=== PATIENT | male | born 1980 | race Caucasian/White ===

== ENCOUNTER 2016-10-18 16:43 | Emergency (ER) | payer OTHER ==
[2016-10-18] MEDS ORDERED: DIPHTH,PERTUSS(ACELL),TET VAC 0.5 ML VIAL IM ONE ×2 (17:41→18:41)
[2016-10-18] MEDS ORDERED: LIDOCAINE HCL/EPINEPHRINE 30 ML VIAL IJ ONE (18:50)
--- NOTE | 2016-10-18 18:56 | ERNOTE ---
Medical Problem HPI - Narrative Date of Service: 10/18/16 - General Chief Complaint: Laceration Time Seen by Provider: 10/18/16 18:46 Source: patient Exam Limitations: no limitations - Immun/Allergies/Home Medications Immunizations: IMMUNIZATION HX Immunizations Up to Date No History of Influenza Vaccine No Hx Pneumococcal Vaccination No Allergies/Adverse Reactions: Allergies No Known Allergies Allergy (Unverified 10/18/16 17:40) Home Medications: HOME MEDICATIONS NK [No Home Medication] 10/18/16 [Last Taken Unknown] - History of Present History Narrative: About 1530 today horse spooked and rolled on him. Laceration right lower quarles. Abrasion, bruise and pain proximal left lower leg. Timing: constant Severity: mild, moderate Modifying Factors - (Improves): Present: rest Modifying Factors - (Worsens): Present: movement Review of Systems - Review of Systems Constitutional: Present: no symptoms reported EYE: Present: no symptoms reported ENT: Present: no symptoms reported Respiratory: Present: no symptoms reported Cardiology: Present: no symptoms reported Gastrointestinal/Abdominal: Present: no symptoms reported Genitourinary: Present: no symptoms reported Musculoskeletal: Present: See HPI Skin: Present: See HPI Neurological: Present: no symptoms reported Endocrine: Present: no symptoms reported Hematologic/Lymphatic: Present: no symptoms reported Psych: Present: no symptoms reported All Other Systems: All systems neg except as marked - Patient's Past Medical History Patient History - Medical: No pertinent hx Patient History - Cardiac/Respiratory: No pertinent hx Patient History - Cancer: No Hx of Cancer Patient History - Other: None - Social History Living Situations: home Psych History: No pertinent hx Smoking Status: Former smoker Have you smoked in the past 12 months: No Do you dip or chew tobacco: No - Immunizations Immunizations Up to Date: No Hx Pneumococcal Vaccination: No History of Influenza Vaccine: No Physical Exam - Physical Exam General Appearance: Present: wd/wn, alert, no apparent distress Eye Exam: Normal inspection: right, PERRL: bilateral, EOMI: bilateral, Other: left - left eye muscles damaged years ago Ears, Nose, Throat: Present: normal ENT inspection, hearing grossly normal Neck: Present: normal inspection Respiratory: Present: no respiratory distress Cardiovascular/Chest: Present: regular rate, rhythm Gastrointestinal/Abdominal: Present: normal bowel sounds, nontender, nondistended, soft, no organomegaly Back Exam: Present: normal inspection Extremity Exam: Present: other - 2 cm superficial lacertion distal right quarles. small abrasion and bruise proximal left lower leg. Neurological Exam: Present: alert, oriented, normal mood/affect, no motor/ sensory deficits Skin Exam: Present: normal color, warm/dry ED Progress - Vital Signs Patient's Vital Signs:: I have reviewed the patient's vital signs. Vital Signs: Vital Signs 10/18/16 10/18/16 17:35 18:47 Pulse Rate 78 76 Respiratory 16 18 Rate Blood Pressure 148/114 125/76 O2 Sat by Pulse 99 98 Oximetry - X-Ray X-Ray #1 X-Ray: tibula/fibula Interpretation: Interp. by me - no fracture - Progress/Reassessment Chief Complaint: Laceration Departure - Departure Clinical Impression: Laceration, Abrasion Contusion Qualifiers: Encounter type: initial encounter Contusion area: lower leg Laterality: left Qualified Code(s): S80.12XA - Contusion of left lower leg, initial encounter Disposition: Home self-care Condition: Good Instructions: Laceration Care, Adult, [id number], Contusion, [id number], Abrasion, [id number], RICE for Routine Care of Injuries, [id number] Additional Instructions: change the dressing twice daily and as needed. stitches out in 2 weeks. cover the stitches with plastic wrap and tape in the shower to keep it dry. bacitracin ointment over the counter twice daily to the abrasion on your left leg till it's healed. Referrals: Doris Lu, [Primary Care Provider] -
--- OUTSIDE RECORDS SUMMARY | 2016-10-18 19:24 | XMS REPORT | Continuity of Care Document ---
:1980 Author Organization [facility] ([facility]) Address [address] [place] [address] Phone [phone] Care Team Providers Name Role Phone Radha Billings Primary Care Provider [phone] Source Comments This disclosure is being made pursuant to the Care Everywhere program, applicable federal and state laws, and may not contain all informaitonavailable regarding this patient.[facility] ([facility]) Active Allergies and Adverse Reactions Not on File Current Medications Not on file Active Problems Not on file Social History Tobacco Use Types Packs/Day Years Used Date Never Assessed Plan of Care Health Maintenance Due Date Last Done Comments Hepatitis B Vaccine (1 of 3 - Primary Series) 1980 Tdap Vaccine 1992 Lipid Disorder Screening 12/04/1999 MMR Vaccine 12/04/1999 Td Vaccine 12/04/1999 Varicella Vaccine (1 of 2 - Adult - No Evidence of 12/04/1999 Immunity) Influenza Vaccine: Seasonal (#1) 03/30/2016 Results from Last 3 Months Not on file
[2016-10-18 22:45] VITALS: BP 126/80
== END 2016-10-18 20:00 | disposition home or self-care (01) ==
LOC: ER 16:43
PROC: 0HQKXZZ Repair Right Lower Leg Skin, External Approach (ICD-10-PCS; principal; 2016-10-18)
DX: S80.12XA Contusion of left lower leg, initial encounter (principal); S81.811A Laceration without foreign body, right lower leg, initial encounter; W55.12XA Struck by horse, initial encounter; Z87.891 Personal history of nicotine dependence; Z23 Encounter for immunization

== ENCOUNTER 2019-04-04 06:55 | Observation (INO) ==
[~2019-04-04 06:55] MED LIST: RINGER'S SOLUTION,LACTATED 1,000 ML IV PRN; ceFAZolin SODIUM 1 GM VIAL IV PRN
--- NOTE | 2019-04-04 07:24 | ANES ---
Anesthesia Pre Procedure Eval Vitals/Labs: Last Vital Signs Temp 36.2 C 04/04/19 07:05 Pulse 90 04/04/19 07:05 Resp 18 04/04/19 07:05 BP 123/79 04/04/19 07:05 Pulse Ox 95 04/04/19 07:05 HOME MEDICATIONS Naproxen [Naprosyn] 500 mg PO BID #60 tab 03/31/19 [Last Taken Unknown] cephalexin 500 mg capsule 500 mg PO QID 04/03/19 [Last Taken 04/03/19] Ibuprofen 800 mg PO BID PRN 04/04/19 [Last Taken 04/02/19] Allergies/Adverse Reactions: Allergies Allergy/AdvReac Type Severity Reaction Status Date / Time No Known Allergies Allergy Verified 04/04/19 07:09 - Planned Procedure Planned Procedure: I&D elbow Medication List Reviewed:: Yes Allergies Verified: Yes Medical History (Updated 04/03/19 @ 14:20 by Lars Stallworth MD) ADHD Onset Date: Unknown Arthritis Onset Date: Unknown Hx of fracture of leg Onset Date: Unknown Lyme disease Onset Date: Unknown Syphilis contact, treated Onset Date: Unknown Surgical History (Updated 04/03/19 @ 12:54 by Kailash Deutsch MA) History of hip surgery Onset Date: Unknown Hx of facial fracture repair Onset Date: Unknown Hx of foot surgery Onset Date: Unknown Family History (Updated 04/03/19 @ 12:53 by Kailash Deutsch MA) Father Alive and well Mother Cancer breast Hypertension - Family Anesthesia History Family History:: no untoward family reactions to anesthesia, no familial bleeding tendencies, no family history of clotting disorders, no family history of premature - Airway/Neck/Teeth Within Normal Limits:: Yes Teeth Condition: intact Mallampatti Score: 4 Thyromental (T-M) distance: > 6 cm Mandibulo Hyoid distance: > 3 cm - Respiratory Respiratory Physical: lungs clear Smoking Status: Former smoker Discussed smoking cessation including day of surgery: No Sleep Apnea currently treated: No Sleep Apnea by current assessment: Yes Discussed Risks/Treatment of HERMELINDO: Yes - Cardiovascular Tolerate Activity: Good Heart Sounds: S1 & S2, Regular - Anesthesia Assessment and Plan ASA Class: PS, II Anesthesia Type Plan: General ET, General LMA
[2019-04-04] MEDS ORDERED: ceFAZolin SODIUM 1 GM VIAL IV PRN (07:54)
[2019-04-04] MEDS ORDERED: BUPIVACAINE HCL/EPINEPHRINE 50 ML VIAL IJ ONE (08:00)
[2019-04-04] MEDS ORDERED: ACETAMINOPHEN 500 MG TABLET PO PRN (08:21)
[2019-04-04] MEDS ORDERED: diphenhydrAMINE HCL 50 MG/ML VIAL IV PRN (08:21)
[2019-04-04] MEDS ORDERED: MAG HYDROX/ALUMINUM HYD/SIMETH 30 ML UDC PO PRN (08:21)
[2019-04-04] MEDS ORDERED: HYDROcodone/ACETAMINOPHEN 1 EACH TABLET PO PRN (08:21)
[2019-04-04] MEDS ORDERED: ONDANSETRON HCL/PF 2 MG/ML VIAL IV PRN (08:21)
[2019-04-04] MEDS ORDERED: MAGNESIUM HYDROXIDE 30 ML UDC PO PRN (08:21)
--- NOTE | 2019-04-04 08:46 | ANES ---
Post Anesthesia Discharge - Transfer of Care Transfer of Care handoff given to nurse: Yes - Discharge from PACU Discharge from PACU when meets criteria: Yes - Discharge to ASU Discharge to ASU-no complications/pt stable: Yes
--- NOTE | 2019-04-04 08:57 | ANES ---
Post Anesthesia Assessment - Vital Signs Vitals: Last Vital Signs Temp 37.4 C 04/04/19 08:55 Pulse 80 04/04/19 08:55 Resp 12 04/04/19 08:55 BP 124/73 04/04/19 08:55 Pulse Ox 95 04/04/19 08:55 Airway Patency: Normal - Mental Status Level Of Consciousness: Awake - Pain Level Pain Score: 4 - N/V Assessment Nausea/Vomiting Presence: None Dehydration:: No
[2019-04-04] MEDS: HYDROcodone/ACETAMINOPHEN 1 EACH TABLET PO PRN ×3 (09:53→22:33)
--- NOTE | 2019-04-04 10:35 | OR ---
Operative Report - Dictated Report Narrative: Date: 04/04/2019 Physician: Lars Stallworth M.D. Comber Tender: Artis Cedillo PA-C Preoperative diagnosis: Right infected olecranon bursa Postoperative diagnosis: Right infected olecranon bursa Procedure: Irrigation and debridement of right olecranon bursa including skin, subcutaneous tissue, and bone 4 x 5 cm Anesthesia: General plus local Complications: None Estimated blood loss: Minimal Tourniquet time: 21 Minutes at 250 mmHg Specimens: None Retained implants: None Drains: 7 [place]guillan round HORACE drain Indications: Gee is a 38 year-old male who was roughhousing with his dog and fell on the right elbow and noted some pain. Overnight he developed redness and swelling and presented to an outside walk-in clinic where he was instructed to come to our emergency department due to concern for infection. Aspiration was performed in our emergency department which grew out staph aureus. He followed up in my clinic in the interim had developed increasing redness and swelling and cellulitis extending all the way up to the volar aspect of the forearm and medial aspect of the upper arm. I counseled him on options and recommended surgical irrigation debridement of his olecranon bursa. The risks, benefits, and alternatives were discussed in clinic. The risks being bleeding, infection, ulnar nerve injury, stiffness, persistent pain, wound complications, and need for additional procedures. Consent was obtained in the clinic. Procedure: After marking the correct extremity in the preoperative holding area, a timeout was performed in the operating room. General anesthetic was performed by the nurse agricultural research engineer without complication. The patient was then placed in the left lateral decubitus position on a beanbag with the operative arm supported by a bone foam ramp. IV antibiotics consisting of 2 g of Ancef were administered prior to the procedure. A well-padded tourniquet was applied to the operative upper arm. The right upper extremity was then prepped and draped in usual sterile fashion. The arm was exsanguinated and the tourniquet was inflated to 250 mmHg. A longitudinal incision was made over the olecranon approximately 5 cm in length. We immediately encountered a large amount of cloudy fluid. This was cultured with a swab. The wound was fully opened and the pocket of infection was approximately 5 x 4 cm with no tracking into the forearm or upper arm. We then proceeded with a thorough mechanical debridement of the wound with a combination of a rongeur and a large curette. Tissue samples were also sent for culture. After a thorough mechanical debridement, the wound was copiously irrigated with 3 L of normal saline. This point we felt we had adequately washed out the wound. A 7 [place]guillan round drain was placed in the wound. The skin was closed with interrupted 4-0 nylon and sterile dressings consisting of Xeroform, 4 x 4, soft roll, and JAMAL wrap were applied. All sponge, needle, blade, and instrument counts were correct prior to closing the wounds. The patient was awoken and transferred to the postanesthesia care unit in stable condition.
[2019-04-04] MEDS: ceFAZolin SODIUM 2 GM in DEXTROSE 5 % IN WATER 50 ML IV SCH ×4 (14:21→22:33)
[2019-04-05] MEDS: ceFAZolin SODIUM 2 GM in DEXTROSE 5 % IN WATER 50 ML IV SCH ×2 (05:50)
[2019-04-05] MEDS: HYDROcodone/ACETAMINOPHEN 1 EACH TABLET PO PRN (06:46)
--- NOTE | 2019-04-05 11:54 | DS ---
(1) Infection of right olecranon bursa Problem: Acute Description of Stay: 38-year-old male admitted for 23-hour observation stay for right elbow olecranon bursitis infection. Patient was not admitted status post open irrigation and debridement of his right olecranon bursa. Cultures were taken of this, cultures that were taken in the ER a few days prior revealed staph aureus bacteria. It is sensitive to his treatment with p.o. antibiotics. However patient had significant cellulitic type involvement that appeared to be worsening while taking p.o. antibiotics this is why surgical intervention was warranted. Patient has had an uncomplicated stay. Drain has been putting out less than 10 cc per shift. Pain is well controlled, he is return to p.o. diet. Dressings were changed prior to his discharge without complication. Patient will follow- up in 1 week in orthopedic outpatient clinic. Patient will be given a 10-day course of Keflex p.o. Patient can call orthopedic outpatient clinic with any acute questions or concerns. Patient can leave dressings in place until follow- up. Dressings need to be maintained clean and dry. Procedures Performed: see notes below List Procedures: Irrigation debridement of right olecranon bursitis infection Results and Findings: Pending Mircobiology Results 04/04/19 08:05 Other - Right Surgical Culture - Preliminary Staphylococcus Species 04/04/19 08:05 Elbow - Right Surgical Culture - Preliminary Staphylococcus Species Discharge Location: Home Disposition: Home self-care Condition: Good Discharge Activity: Activity as tolerated, Other - Contain soft dressings in place until follow-up Discharge Diet: General/regular food Referrals: Doris Lu, [Primary Care Provider] - Problem Oriented Discharge Instructions to Patient/Family: Elbow Bursitis, Ledf-ob-Ospi Print Language (Greenlandic or Afghan Available): Greenlandic Prescriptions (Any new or edited meds): Cephalexin 500 mg PO QID 10 Days #40 cap HYDROcodone/ACETAMINOPHEN [[place] 5-325] 1 - 2 ea PO Q6H PRN #40 tab PRN Reason: Severe Pain (Pain Scale 7-10) Complete Home Medications List: Complete Home Medication List: Ibuprofen 800 mg PO BID PRN 04/04/19 Cephalexin 500 mg PO QID 10 Days #40 cap 04/05/19 HYDROcodone/ACETAMINOPHEN [[place] 5-325] 1 - 2 ea PO Q6H PRN #40 tab 04/05/19
[2019-04-05 12:29] VITALS: BP 118/74
== END 2019-04-05 12:20 | disposition home or self-care (01) ==
LOC: MS 06:55 → SUR 06:55
PROVIDERS: ADMIT Orthopaedic Surgery; ATTEND Orthopaedic Surgery
DX: M71.121 Other infective bursitis, right elbow
CPT/HCPCS: 87070; 87077; 87186; G0378